=== PATIENT | male | born 1955 | race African-American/Black ===

== ENCOUNTER 2018-05-13 15:25 | Emergency (ER) | payer MEDICAID ==
[~2018-05-13] VITALS: Ht 185.4 cm; Wt 84.8 kg
[~2018-05-13 15:25] MED LIST: GABA-339 PO; GABA100C; HYDR-4683; LIS10T GT; LURA40TA PO; OLAN10IN IM; OLAN15TA16; OXYB5TAB62 PO; TOPI25CA5 PO; ZYPREXIA
[2018-05-13 16:09] VITALS: BP 123/82
[2018-05-13 16:43] LABS: Basophils # (auto) 0 uL; Basophils % (auto) 0.5 % (0.0-2.0); Eosinophils # (auto) 0.2 uL; Eosinophils % (auto) 4.7 % (0.0-7.0); Hematocrit 33.6 % (41.0-53.0); Lymphocytes # (auto) 0.8 uL; Mean Corpuscular Hgb Conc. 32.7 g/dL (32.0-36.0); Mean Corpuscular Volume 85.6 fL (80.0-100.0); Monocytes # (auto) 0.7 uL; Monocytes % (auto) 16.5 % (0.0-12.0); Neutrophils # (auto) 2.5 uL; Neutrophils % (auto) 59.3 % (37.0-80.0); Platelet Count (auto) 125 10^3/uL (140-450); Red Blood Cells 3.92 10^6/uL (4.5-5.90); Red Cell Distribution Width 16.7 % (11.8-14.3); White Blood Cell 4.2 10^3/uL (4.4-10.8)
[2018-05-13 16:59] LABS: Albumin 3.4 g/dL (3.4-5.0); BUN/Creatinine Ratio 12.9; Potassium 3.6 mmol/L (3.5-5.1)
[2018-05-13 17:01] LABS: Bilirubin, Total 0.3 mg/dL (0.2-1.0); Total Protein 7.8 g/dL (6.4-8.2)
[2018-05-13 18:42] LABS: Urine Bacteria FEW /hpf (None Seen); Urine Blood Negative /uL (Negative); Urine Mucus FEW (None Seen); Urine Specific Gravity 1.025 (1.001-1.035); Urine WBC 10 /hpf (0 - 3)
== END 2018-05-13 19:07 | disposition home or self-care (01) ==
LOC: ER 15:28
DX: D64.9 Anemia, unspecified (principal); N39.0 Urinary tract infection, site not specified; Q44.6 Cystic disease of liver; I25.10 Atherosclerotic heart disease of native coronary artery without angina pectoris; I10 Essential (primary) hypertension; Z86.73 Personal history of transient ischemic attack (TIA), and cerebral infarction without residual deficits; Z79.899 Other long term (current) drug therapy; Z95.0 Presence of cardiac pacemaker
CPT/HCPCS: 36415; 74176; 80053; 81001; 85025; 87493; 93005; 94761

== ENCOUNTER 2019-03-06 10:27 | Emergency (ER) | payer MEDICAID ==
[~2019-03-06] VITALS: Ht 185.4 cm; Wt 88.5 kg
[~2019-03-06 10:27] MED LIST changes: +OXYB5TAB24 PO; -OXYB5TAB62 PO
[2019-03-06 11:25] LABS: Chloride 107 mmol/L (98-107); Potassium 3.3 mmol/L (3.5-5.1); Sodium 142 mmol/L (136-145)
[2019-03-06 11:27] LABS: Basophils # (auto) 0 uL; Basophils % (auto) 0.6 % (0.0-2.0); Eosinophils # (auto) 0.1 uL; Eosinophils % (auto) 1.3 % (0.0-7.0); Hematocrit 41.9 % (41.0-53.0); Hemoglobin 13.5 g/dL (13.5-17.5); Lymphocytes # (auto) 0.7 uL; Lymphocytes % (auto) 15.3 % (10.0-50.0); Mean Corpuscular Hemoglobin 28.2 pg (28.0-32.0); Mean Corpuscular Hgb Conc. 32.2 g/dL (32.0-36.0); Mean Corpuscular Volume 87.8 fL (80.0-100.0); Monocytes # (auto) 0.4 uL; Monocytes % (auto) 8.3 % (0.0-12.0); Neutrophils # (auto) 3.6 uL; Neutrophils % (auto) 74.5 % (37.0-80.0); Nucleated Red Blood Cells % 0.2 %; Platelet Count (auto) 146 10^3/uL (140-450); Red Blood Cells 4.77 10^6/uL (4.5-5.90); Red Cell Distribution Width 16.7 % (11.8-14.3); White Blood Cell 4.8 10^3/uL (4.4-10.8)
[2019-03-06 11:28] LABS: Anion Gap 9 (5-15); Blood Urea Nitrogen 21 mg/dL (7-18); Calcium 9.4 mg/dL (8.5-10.1); Carbon Dioxide 26 mmol/L (21-32); Glucose 99 mg/dL (74-106)
[2019-03-06 11:34] LABS: Alanine Aminotransferase 20 U/L (16-61); Alkaline Phosphatase 69 U/L (45-117); Aspartate Aminotransferase 20 U/L (15-37); BUN/Creatinine Ratio 10.3; Bilirubin, Total 0.3 mg/dL (0.2-1.0); Blood Alcohol < 3.0 mg/dL (0-5); GFR African American 43 mL/min; GFR Non-African American 36 mL/min; Total Protein 8.7 g/dL (6.4-8.2)
[2019-03-06 12:29] LABS: Alcohol, Urine < 3.0 mg/dL (0-5); Barbiturate Scree,Urine NEGATIVE (NEGATIVE); Benzodiazephine Screen, Urine NEGATIVE (NEGATIVE); Cannabinoid Screen, Urine POSITIVE (NEGATIVE); Cocaine Screen, Urine NEGATIVE (NEGATIVE); Phencyclidine Screen, Urine NEGATIVE (NEGATIVE)
[2019-03-06 12:32] LABS: Amphetamine Screen, Urine NEGATIVE (NEGATIVE); Opiate Scree,Urine POSITIVE (NEGATIVE)
[2019-03-06 12:36] LABS: Urine Bacteria MANY /hpf (None Seen); Urine Blood TRACE /uL (Negative); Urine WBC 247 /hpf (0 - 3); Urine WBC Clumps PRESENT /hpf (None Seen)
[2019-03-06] MEDS ORDERED: ATEN-60 PO (14:12)
[2019-03-06] MEDS ORDERED: OXYB15TA12 PO (14:18)
[2019-03-06] MEDS ORDERED: LAMO25TA2 PO (14:18)
[2019-03-06] MEDS ORDERED: BACL10TA PO (14:18)
[2019-03-06] MEDS ORDERED: HYDR-4683 PO (14:18)
[2019-03-06] MEDS ORDERED: SERT-274 PO (14:18)
[2019-03-06] MEDS ORDERED: DOCU-94 PO (14:18)
[2019-03-06] MEDS ORDERED: HYDR-4296 PO (14:18)
[2019-03-06] MEDS ORDERED: TAMS0.4C36 PO (14:18)
[2019-03-06] MEDS ORDERED: ASPI81TA27 PO (14:18)
[2019-03-06] MEDS ORDERED: FINA5TAB4 PO (14:18)
[2019-03-06] MEDS ORDERED: CARV6.2551 PO (14:18)
[2019-03-06] MEDS ORDERED: CIPROFLOXACIN HCL 500 MG TAB PO ONE (15:30)
[2019-03-06] MEDS: DOCUSATE SOD 100 MG CAP PO SCH ×2 (15:30→21:41)
[2019-03-06] MEDS: LURASIDONE (LATUDA) 40 MG TAB PO SCH (16:01)
[2019-03-06] MEDS: OXYBUTYNIN CHL 5 MG TAB PO SCH ×2 (16:09→21:41)
[2019-03-06] MEDS: TAMSULOSIN HYDROCHLORIDE 0.4 MG CAP PO SCH (21:41)
[2019-03-06] MEDS: hydrALAZINE HCL 25 MG TAB PO SCH (21:41)
[2019-03-06] MEDS ORDERED: CARVEDILOL 3.125 MG TAB PO SCH (22:00)
[2019-03-07] MEDS ORDERED: lamoTRIgine 25 MG TAB PO SCH (08:00)
[2019-03-07] MEDS: LURASIDONE (LATUDA) 40 MG TAB PO SCH ×2 (08:00→21:49)
[2019-03-07] MEDS: DOCUSATE SOD 100 MG CAP PO SCH ×2 (08:08→21:53)
[2019-03-07] MEDS ORDERED: ATENOLOL 25 MG TAB PO SCH (10:00)
[2019-03-07] MEDS ORDERED: ASPirin-EC 81 mg tab PO SCH (10:00)
[2019-03-07] MEDS ORDERED: FINASTERIDE 5 MG TAB PO SCH (10:00)
[2019-03-07] MEDS: hydrALAZINE HCL 25 MG TAB PO SCH ×2 (12:11→21:52)
[2019-03-07] MEDS: OXYBUTYNIN CHL 5 MG TAB PO SCH ×2 (12:12→21:52)
[2019-03-07] MEDS: TAMSULOSIN HYDROCHLORIDE 0.4 MG CAP PO SCH (21:49)
[2019-03-08] MEDS ORDERED: POTASSIUM CHL 10% (20 MEQ/15ML) 15ml ORAL SOLN PO ONE (01:00)
[2019-03-08 02:23] VITALS: BP 119/82
[2019-03-08] MEDS ORDERED: GABAPENTIN 100 MG CAP PO SCH (14:00)
== END 2019-03-08 04:23 | disposition home or self-care (01) ==
LOC: EDBD 10:27 → ER 10:38
DX: F31.9 Bipolar disorder, unspecified (principal); N39.0 Urinary tract infection, site not specified; I10 Essential (primary) hypertension; F20.9 Schizophrenia, unspecified; I25.10 Atherosclerotic heart disease of native coronary artery without angina pectoris; Z86.73 Personal history of transient ischemic attack (TIA), and cerebral infarction without residual deficits; Z95.0 Presence of cardiac pacemaker; Z79.82 Long term (current) use of aspirin; Z79.899 Other long term (current) drug therapy
CPT/HCPCS: 36415; 80053; 80307; 80320; 80329; 81001; 85025; 93005; 94761